=== PATIENT | male | born 1975 | race Caucasian/White ===

== ENCOUNTER 2019-12-06 07:43 | Emergency (ER) | payer SELFPAY ==
[~2019-12-06] VITALS: Ht 185.4 cm; Wt 90.7 kg
--- NOTE | 2019-12-06 08:22 | NUR ---
TECH AT BEDSIDE TO REMOVE R LOWER EXTREMITY CAST
--- NOTE | 2019-12-06 09:32 | NUR ---
Patient discharged to home in stable condition. Written and verbal after care instructions given. Patient verbalizes understanding of instruction.
[2019-12-06 09:54] VITALS: BP 124/82
== END 2019-12-06 09:34 | disposition home or self-care (01) ==
LOC: ER 07:46
DX: M25.571 Pain in right ankle and joints of right foot (principal)
CPT/HCPCS: 73610-TC